=== PATIENT | male | born 1950 | race African-American/Black ===

== ENCOUNTER 2017-06-29 20:45 | Emergency (ER) | payer OTHER ==
[~2017-06-29] VITALS: Ht 175.3 cm; Wt 76.2 kg
[2017-06-29] MEDS ORDERED: TETRACAINE HCL 0.5% OPTH(EYE) SOLN 4ML LEFTEYE ONE (21:30)
[2017-06-29] MEDS ORDERED: FLUORESCEIN SOD 1 MG TEST STRIP LEFTEYE ONE (21:30)
[2017-06-29] MEDS ORDERED: FLUORESCEIN SOD 1 MG TEST STRIP RIGHTEYE ONE (21:30)
[2017-06-29] MEDS ORDERED: ERYTHROMY OPTH OINT 5mg/gm 1gm OP ONE (22:30)
[2017-06-29] MEDS ORDERED: HYDROcodone-ACET 5/325MG TAB PO ONE (22:30)
[2017-06-29] MEDS ORDERED: cloNIDine HCL 0.1 MG TAB ONE (22:49)
[2017-06-29] MEDS ORDERED: cloNIDine HCL 0.1 MG TAB PO ONE (23:00)
[2017-06-29 23:09] VITALS: BP 150/100
== END 2017-06-29 23:11 | disposition home or self-care (01) ==
LOC: ER 20:48
DX: H10.32 Unspecified acute conjunctivitis, left eye (principal); Z86.69 Personal history of other diseases of the nervous system and sense organs